=== PATIENT | female | born 1935 | race African-American/Black ===

== ENCOUNTER 2019-04-02 05:29 | Emergency (ER) | payer OTHER | END 2019-04-02 06:51 | disposition home or self-care (01) | LOC: JER 05:29 ==

== ENCOUNTER 2019-10-31 18:51 | Inpatient (IN) | payer OTHER ==
[2019-10-31] MEDS ORDERED: methylPREDNISolone NA SUCC 125 MG/2 ML VIAL IVPB ONE (19:39)
[2019-10-31] MEDS ORDERED: methylPREDNISolone NA SUCC 125 MG/2 ML VIAL ONE (19:45)
--- NOTE | 2019-10-31 19:47 | PDOC ---
History of Present Illness - General Chief Complaint: Edema Stated Complaint: ALLERGIC REACTION Time Seen by Provider: 10/31/19 19:36 - History of Present Illness Initial Comments: The pt is an 84F w/ a history of HTN who presents for evaluation of 1 day of upper lip swelling and hoarse voice. The pt reports noticing it this morning. Denies trouble breathing, trouble swallowing, tongue swelling, throat tingling. She denies any new foods/exposures. She reports taking lisinpril for 15 yrs. Denies fevers/chills, chest pain, abdominal pain, N/V/C/D, dysuria, hematuria 10/31/19 19:47 Past History - Past Medical History Allergies/Adverse Reactions: Allergies Allergy/AdvReac Type Severity Reaction Status Date / Time No Known Allergies Allergy Verified 10/16/13 19:22 Home Medications: Ambulatory Orders Carvedilol [Coreg] 6.25 mg PO DAILY 04/02/19 Lisinopril [Prinivil] 10 mg PO DAILY 04/02/19 Nifedipine [Adalat cc] 60 mg PO DAILY 04/02/19 COPD: No HTN: Yes - Surgical History Appendectomy: Yes - Immunization History Td Vaccination: Yes TDAP Vaccination: Yes Immunization Up to Date: Yes - Psycho Social/Smoking Cessation Hx Smoking History: Never smoked Have you smoked in the past 12 months: No Hx Alcohol Use: No Drug/Substance Use Hx: No Review of Systems - Review of Systems Able to Perform ROS?: Yes Comments:: GENERAL/CONSTITUTIONAL: No fever or chills. No weakness HEAD, EYES, EARS, NOSE AND THROAT: No change in vision. No change in hearing. + Hoarse voice CARDIOVASCULAR: No chest pain or shortness of breath RESPIRATORY: Denies cough, hemoptysis GASTROINTESTINAL: No nausea, vomiting, diarrhea or constipation GENITOURINARY: No dysuria, frequency, or change in urination MUSCULOSKELETAL: No joint or muscle swelling or pain. No neck or back pain SKIN: No rash NEUROLOGIC: No headache, vertigo, loss of consciousness, or change in strength/ sensation ENDOCRINE: No increased thirst. No abnormal weight change HEMATOLOGIC/LYMPHATIC: No anemia, easy bleeding, or history of blood clots ALLERGIC/IMMUNOLOGIC: Upper lip swelling 10/31/19 20:56 Is the patient limited Occitan proficient: No *Physical Exam - Vital Signs Last Vital Signs Temp Pulse Resp BP Pulse Ox 97.6 F 64 16 234/77 H 100 10/31/19 19:23 10/31/19 19:23 10/31/19 19:23 10/31/19 19:23 10/31/19 19:23 - Physical Exam GENERAL: Awake, alert, and oriented to person/place/time, in no acute distress HEAD: No signs of trauma, normocephalic, atraumatic EYES: PERRLA, EOMI, sclera anicteric, conjunctiva clear ENT: Hearing grossly normal, nares patent, large tongue but states is baseline, no oropharynx edema, upper lip swelling noted LUNGS: No distress, speaks in full sentences, clear to auscultation bilaterally , no stridor HEART: Regular rate and rhythm, normal S1 and S2, no murmurs appreciated, peripheral pulses normal and equal bilaterally ABDOMEN: Soft, nontender, normoactive bowel sounds. No guarding, no rebound EXTREMITIES: Normal inspection, Normal range of motion, no edema. No clubbing or cyanosis NEUROLOGICAL: Cranial nerves II through XII grossly intact. Normal speech, normal gait, no focal sensorimotor deficits SKIN: Warm, Dry 10/31/19 20:56 ED Treatment Course - LABORATORY CBC & Chemistry Diagram: 10/31/19 19:50 10/31/19 19:50 - RADIOLOGY Radiology Studies Ordered: Category Date Time Status CHEST X-RAY PORTABLE* [RAD] Stat Radiology 10/31/19 19:39 Ordered Medical Decision Making - Medical Decision Making The pt is an 84F w/ a history of HTN who presents for evaluation of 1 day of upper lip swelling and hoarse voice likely 2/2 angioedema ED Course Pt protecting airway Will give Benadryl and Solumedrol Labs sent 10/31/19 21:04 Pt with improvement in voice Lip swelling present No tongue swelling/oropharyngeal swelling HTN noted, pt w/o GREEN, CP, or CRISSY Will give home medications, Nifedipine and Coreg Will recheck BP s/p meds No leukocytosis No anemia Lytes unremarkable Cr 1.4, at baseline LFTs wnl Pt signed out to [facility] Admitting 10/31/19 21:22 Discharge - Discharge Information Problems reviewed: Yes Clinical Impression/Diagnosis: Angioedema Qualifiers: Encounter type: initial encounter Qualified Code(s): T78.3XXA - Angioneurotic edema, initial encounter HTN (hypertension) Qualifiers: Hypertension type: unspecified Qualified Code(s): I10 - Essential (primary) hypertension Condition: Good - Admission Yes - Follow up/Referral - Patient Discharge Instructions - Post Discharge Activity
--- NOTE | 2019-10-31 19:48 | PDOC ---
Attending Attestation - Resident Resident Name: Vahid Adams - ED Attending Attestation I have performed the following: I have examined & evaluated the patient, The case was reviewed & discussed with the resident, I agree w/resident's findings & plan - HPI HPI: 10/31/19 20:30 see resident hpi - Physicial Exam PE: 10/31/19 20:30 agree with resident exam - Medical Decision Making 10/31/19 20:30 84-year-old female currently on DONTE inhibitor's for hypertension with upper lip swelling and hoarse voice throughout the day Patient improved after IV steroids, on reevaluation lip swelling is subjectively improved per patient, her voice is improved per friend was sitting at the bedside, tongue remains non-swollen and mobile We will admit for observation to medical service/hospitalist
[2019-10-31 20:12] LABS: BASO % 0.6 % (0-2.0); EOS % 7.4 % (0-4.5); HEMATOCRIT 34.9 % (32.4-45.2); HEMOGLOBIN 11.1 GM/dL (10.7-15.3); LYMPH % 20.9 % (8-40); MCH 22.9 pg (25.7-33.7); MCHC 31.7 g/dl (32.0-36.0); MEAN CELL VOLUME 72.4 fl (80-96); MEAN PLT VOLUME 10.1 fl (7.5-11.1); MONO % 9.2 % (3.8-10.2); NEUT % 61.9 % (42.8-82.8); PLATELET COUNT 274 K/MM3 (134-434); RBC 4.82 M/mm3 (3.60-5.2); RDW 15.3 % (11.6-15.6); WHITE BLOOD COUNT 5.7 K/mm3 (4.0-10.0)
[2019-10-31 20:40] LABS: ALBUMIN 3.4 g/dl (3.4-5.0); BILIRUBIN,TOTAL 0.3 mg/dL (0.2-1); CALCIUM 9.5 mg/dL (8.5-10.1); CREATININE 1.4 mg/dL (0.55-1.3); POTASSIUM 3.4 mmol/L (3.5-5.1); TOT PROT 7.5 g/dl (6.4-8.2)
[2019-10-31] MEDS ORDERED: CARVEDILOL 3.125 MG TABLET (FP) PO ONE (21:08)
--- NOTE | 2019-10-31 21:13 | PN ---
Teaching Attending Note Name of Resident: Luis Manuel Mendez ATTENDING PHYSICIAN STATEMENT I saw and evaluated the patient. I reviewed the resident's note and discussed the case with the resident. I agree with the resident's findings and plan as documented. SUBJECTIVE: Patient is an 84 year old woman with a PMH of HTN who presents for evaluation of 1 day of upper lip swelling and hoarse voice. Patient reports noticing it this morning. Denies trouble breathing, trouble swallowing, tongue swelling or throat tingling. She denies any new foods/exposures. She reports taking Lisinpril for 15 years. Denies fevers, chills, chest pain, abdominal pain, nausea, dysuria, hematuria, vomiting, changes in bowel or bladder habits. No recent travels or sick contacts. Denies alcohol, tobacco or illicit drug use. In the ER patient reportedly improved after IV steroids - lip swelling is subjectively improved per patient, her voice is improved per friend was sitting at the bedside and tongue remains non-swollen and mobile. OBJECTIVE: Alert Vital Signs Period Temp Pulse Resp BP Sys/Bashir Pulse Ox Last 24 Hr 97.6 F 64 16 234/77 100 HEENT: No Jaundice, eye redness or discharge, PERRLA, EOMI. Has upper lip swelling; no stridor; No tongue swelling or oropharyngeal edema. Normocephalic, atraumatic. External ears are normal and hearing is grossly intact. No nasal discharge. Neck: Supple, nontender. No palpable adenopathy or thyromegaly. No JVD Chest: Good effort. Clear to auscultation and percussion. Heart: Regular. No S3, rub or murmur Abdomen: Not distended, soft, nontender and no HSM. No rebound or guarding. Normal bowel sounds. Ext: Peripheral pulses intact. No leg edema. Skin: Warm and dry. No petechiae, rash or ecchymosis. Neuro: Alert. Oriented x3. CN 2-12 grossly intact. Sensation grossly intact in all four extremities and DTR are symmetric. Psych: Appropriate mood and affect. Good insight. Current Medications Generic Name Dose Route Start Last Admin Trade Name Freq PRN Reason Stop Dose Admin Nifedipine 90 mg 11/01/19 21:08 Procardia Xl - PO 11/01/19 21:09 ONCE ONE Home Medications Medication Instructions Recorded Carvedilol [Coreg] 6.25 mg PO DAILY 04/02/19 Lisinopril [Prinivil] 10 mg PO DAILY 04/02/19 Nifedipine [Adalat cc] 60 mg PO DAILY 04/02/19 Abnormal Lab Results 10/31/19 10/31/19 19:50 19:50 MCV 72.4 L MCH 22.9 L MCHC 31.7 L Eosinophils % 7.4 H Potassium 3.4 L BUN 22.0 H Creatinine 1.4 H ASSESSMENT AND PLAN: 1. Angioedema - Got Solumedrol and benadryl in the ER. Will continue to treat with benadryl, IV pepcid and FFP while monitoring her closely for respiratory distress or stridor. Counseled to avoid ACEI or ARBs. CXR shows cardiomegaly but no infiltrates. Hypokalemia is unexplained - will check Mg+ level and give IV and PO KCL. Get urinalysis. EKG shows LAE, LAFB, LVH and septal infarct of undetermined age. Initial troponin is negative. Will repeat EKG and troponin. Will continue comprehensive care for all of patients comorbid conditions. 2. CKD - Likely associated with severe hypertension. Will strive for normotension to slow progression of CKD. Will consult nephrology and avoid nephrotoxic agents such as NSAIDS, aminoglycosides, contrast dyes and certain Alternative medicine products. 3. Uncontrolled Hypertension - Record show she had workup for secondary hypertension in 2010. Got Nifedipine XL 90 mg in the ER - if hypertension persists, will give IV hydralazine 5 mg. Restart suitable outpatient antihypertensive drugs when clinically appropriate. 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 Nonpharmacologic measures to control hypertension like weight loss, salt restriction and exercise discussed. Importance of adherence to treatment regimen and attainment of normotension emphasized. 4. DVT prophylaxis - Heparin 5000u sq tid. 5. Advance directives - Full code
[2019-10-31] MEDS ORDERED: CARVEDILOL 3.125 MG TABLET (FP) ONE (21:14)
[2019-10-31] MEDS ORDERED: NIFEdipine E.R. 30 MG TABLET (FP) ONE (21:15)
[2019-10-31] MEDS ORDERED: NIFEdipine E.R. 90 MG TABLET (FP) PO ONE (21:22)
[2019-10-31 21:45] LABS: MAGNESIUM 2.2 mg/dL (1.8-2.4); PHOSPHOROUS 3.6 mg/dL (2.5-4.9)
--- NOTE | 2019-10-31 22:59 | HP ---
CHIEF COMPLAINT: lip swelling PCP: Dr. Mauro HISTORY OF PRESENT ILLNESS: 84 yo F PMH of HTN presents to ED for lip swelling. pt states these symptoms began this morning. she states that she recently changed the brand of her lisinopril on the of the month. she states that she woke up with her lip swollen. she states this has happened once in the past but never like this. she denies eating new foods or travel. she denies allergies. she denies difficulty breathing or swallowing. she states she did not take her BP meds this morning ER course was notable for: (1)solumedrol 125 , benadryl (2)BP 235/77 (3)Coreg 3.125, Nifedipine 90 Recent Travel: denies PAST MEDICAL HISTORY: HTN PAST SURGICAL HISTORY: appendectomy Social History: Smoking:denies Alcohol:denies Drugs: denies Allergies No Known Allergies Allergy (Verified 10/16/13 19:22) HOME MEDICATIONS: Home Medications Medication Instructions Recorded Carvedilol [Coreg] 6.25 mg PO DAILY 04/02/19 Nifedipine [Adalat cc] 60 mg PO DAILY 04/02/19 REVIEW OF SYSTEMS CONSTITUTIONAL: Absent: fever, chills, diaphoresis, generalized weakness, malaise, loss of appetite, weight change HEENT: Present: lip swelling Absent: rhinorrhea, nasal congestion, throat pain, throat swelling, difficulty swallowing, mouth swelling, ear pain, eye pain, visual changes CARDIOVASCULAR: Absent: chest pain, syncope, palpitations, irregular heart rate, lightheadedness , peripheral edema RESPIRATORY: Absent: cough, shortness of breath, dyspnea with exertion, orthopnea, wheezing, stridor, hemoptysis GASTROINTESTINAL: Absent: abdominal pain, abdominal distension, nausea, vomiting, diarrhea, constipation, melena, hematochezia GENITOURINARY: Absent: dysuria, frequency, urgency, hesitancy, hematuria, flank pain, genital pain MUSCULOSKELETAL: Absent: myalgia, arthralgia, joint swelling, back pain, neck pain SKIN: Absent: rash, itching, pallor HEMATOLOGIC/IMMUNOLOGIC: Absent: easy bleeding, easy bruising, lymphadenopathy, frequent infections ENDOCRINE: Absent: unexplained weight gain, unexplained weight loss, heat intolerance, cold intolerance NEUROLOGIC: Absent: headache, focal weakness or paresthesias, dizziness, unsteady gait, seizure, mental status changes, bladder or bowel incontinence PSYCHIATRIC: Absent: anxiety, depression, suicidal or homicidal ideation, hallucinations. PHYSICAL EXAMINATION Vital Signs - 24 hr 10/31/19 10/31/19 19:23 21:32 Temperature 97.6 F Pulse Rate 64 Respiratory 16 Rate Blood Pressure 234/77 H O2 Sat by Pulse 100 100 Oximetry (%) GENERAL: Awake, alert, and fully oriented, in no acute distress. HEAD: Normal with no signs of trauma. EYES: Pupils equal, round and reactive to light, extraocular movements intact EARS, NOSE, THROAT: oropharynx clear without exudates. Moist mucous membranes. swollen upper lip NECK: Normal range of motion, supple without lymphadenopathy, JVD LUNGS: Breath sounds equal, clear to auscultation bilaterally. No wheezes, and no crackles. No accessory muscle use. HEART: Regular rate and rhythm, normal S1 and S2 without murmur, rub or gallop. ABDOMEN: Soft, nontender, not distended, normoactive bowel sounds, no guarding, no rebound, no masses. MUSCULOSKELETAL: Normal range of motion at all joints. No bony deformities or tenderness. No CVA tenderness. UPPER EXTREMITIES: 2+ pulses, warm, well-perfused. No cyanosis. No clubbing. No peripheral edema. LOWER EXTREMITIES: 2+ pulses, warm, well-perfused. No calf tenderness. No peripheral edema. NEUROLOGICAL: Cranial nerves II-XII intact. Normal speech. PSYCHIATRIC: Cooperative. Good eye contact. Appropriate mood and affect. SKIN: Warm, dry, normal turgor, no rashes or lesions noted, normal capillary refill. Laboratory Last Values WBC 5.7 K/mm3 (4.0-10.0) 10/31/19 19:50 RBC 4.82 M/mm3 (3.60-5.2) 10/31/19 19:50 Hgb 11.1 GM/dL (10.7-15.3) 10/31/19 19:50 Hct 34.9 % (32.4-45.2) 10/31/19 19:50 MCV 72.4 fl (80-96) L 10/31/19 19:50 MCH 22.9 pg (25.7-33.7) L 10/31/19 19:50 MCHC 31.7 g/dl (32.0-36.0) L 10/31/19 19:50 RDW 15.3 % (11.6-15.6) 10/31/19 19:50 Plt Count 274 K/MM3 (134-434) 10/31/19 19:50 MPV 10.1 fl (7.5-11.1) 10/31/19 19:50 Absolute Neuts (auto) 3.5 K/mm3 (1.5-8.0) 10/31/19 19:50 Neutrophils % 61.9 % (42.8-82.8) 10/31/19 19:50 Lymphocytes % 20.9 % (8-40) 10/31/19 19:50 Monocytes % 9.2 % (3.8-10.2) 10/31/19 19:50 Eosinophils % 7.4 % (0-4.5) H 10/31/19 19:50 Basophils % 0.6 % (0-2.0) 10/31/19 19:50 Nucleated RBC % 0 % (0-0) 10/31/19 19:50 Sodium 143 mmol/L (136-145) 10/31/19 19:50 Potassium 3.4 mmol/L (3.5-5.1) L 10/31/19 19:50 Chloride 107 mmol/L (98-107) 10/31/19 19:50 Carbon Dioxide 28 mmol/L (21-32) 10/31/19 19:50 Anion Gap 9 MMOL/L (8-16) 10/31/19 19:50 BUN 22.0 mg/dL (7-18) H 10/31/19 19:50 Creatinine 1.4 mg/dL (0.55-1.3) H 10/31/19 19:50 Est GFR (CKD-EPI)AfAm 39.33 10/31/19 19:50 Est GFR (CKD-EPI)NonAf 33.94 10/31/19 19:50 Random Glucose 100 mg/dL (74-106) 10/31/19 19:50 Calcium 9.5 mg/dL (8.5-10.1) 10/31/19 19:50 Phosphorus 3.6 mg/dL (2.5-4.9) 10/31/19 19:50 Magnesium 2.2 mg/dL (1.8-2.4) 10/31/19 19:50 Total Bilirubin 0.3 mg/dL (0.2-1) 10/31/19 19:50 AST 26 U/L (15-37) 10/31/19 19:50 ALT 30 U/L (13-61) 10/31/19 19:50 Alkaline Phosphatase 89 U/L (45-117) 10/31/19 19:50 Total Protein 7.5 g/dl (6.4-8.2) 10/31/19 19:50 Albumin 3.4 g/dl (3.4-5.0) 10/31/19 19:50 Blood Type B POSITIVE 10/31/19 20:00 Antibody Screen Negative 10/31/19 19:50 ASSESSMENT/PLAN: 84 yo F PMH of HTN presents to ED for lip swelling. pt admitted to tele for lip swelling and hypertensive urgency Lip angioedema likely 2/2 DONTE-I - DC lisinopril -s/p solumedrol and benadryl -continue benadryl -add pepcid -will consider FFP -monitor for improvement Hypertensive Urgency -change nifedipine to 60 mg BID, continue coreg -add HCTZ 12.5 in am -Hydralazine IV 5mg prn -continue to monitor -continue cardiac monitoring DVT ppx: Heparin F/E/N -hypokalemia- repleted with KCl -monitor lytes -no standing fluids -low sodium diet Dispo: admit to tele ATTENDING PHYSICIAN STATEMENT I saw and evaluated the patient. I reviewed the resident's note and discussed the case with the resident. I agree with the resident's findings and plan as documented. SUBJECTIVE: OBJECTIVE: ASSESSMENT AND PLAN:
[2019-11-01] MEDS ORDERED: hydrALAZINE HCL 20 MG/ML VIAL IVPUSH ONE (00:12)
[2019-11-01] MEDS ORDERED: ACETAMINOPHEN 325 MG TABLET (FP) PO PRN (00:13)
[2019-11-01] MEDS ORDERED: POTASSIUM CHLORIDE ORAL LIQUID 20 MEQ/15 ML PO ONE (00:16)
[2019-11-01] MEDS ORDERED: HYDROCHLOROTHIAZIDE 12.5 MG CAPSULE (FP) PO ONE ×2 (00:48→22:35)
[2019-11-01 03:28] VITALS: BMI 23.7
[2019-11-01 06:51] LABS: BASO % 0.1 % (0-2.0); HEMATOCRIT 33.6 % (32.4-45.2); HEMOGLOBIN 10.8 GM/dL (10.7-15.3); LYMPH % 9.6 % (8-40); MCHC 32.3 g/dl (32.0-36.0); MEAN PLT VOLUME 9.8 fl (7.5-11.1); MONO % 1.2 % (3.8-10.2); NEUT % 89.1 % (42.8-82.8); PLATELET COUNT 288 K/MM3 (134-434); RBC 4.72 M/mm3 (3.60-5.2); RDW 15.2 % (11.6-15.6); WHITE BLOOD COUNT 6.1 K/mm3 (4.0-10.0)
[2019-11-01 07:27] LABS: ALBUMIN 3.2 g/dl (3.4-5.0); BILIRUBIN,TOTAL 0.2 mg/dL (0.2-1); BLOOD UREA NITROGEN 23.8 mg/dL (7-18); CALCIUM 9.4 mg/dL (8.5-10.1); CREATININE 1.4 mg/dL (0.55-1.3); MAGNESIUM 2.3 mg/dL (1.8-2.4); PHOSPHOROUS 3.3 mg/dL (2.5-4.9); POTASSIUM 3.8 mmol/L (3.5-5.1); TOT PROT 7.1 g/dl (6.4-8.2)
[2019-11-01] MEDS: NIFEdipine E.R 60 MG TABLET (UD) PO SCH ×2 (09:15→21:10)
--- NOTE | 2019-11-01 09:29 | EKG ---
Test Reason : Blood Pressure : / mmHG Vent. Rate : 063 BPM Atrial Rate : 063 BPM P-R Int : 160 ms QRS Dur : 122 ms QT Int : 432 ms P-R-T Axes : 051 -61 034 degrees QTc Int : 442 ms NORMAL SINUS RHYTHM POSSIBLE LEFT ATRIAL ENLARGEMENT LEFT ANTERIOR FASCICULAR BLOCK LEFT VENTRICULAR HYPERTROPHY WITH QRS WIDENING AND REPOLARIZATION ABNORMALITY CANNOT RULE OUT SEPTAL INFARCT (CITED ON OR BEFORE 07-JUN-2011) ABNORMAL ECG Confirmed by Chava Marcelino MD ([id number]) on 11/01/2019 9:29:21 AM Referred By: Confirmed By:Chava Marcelino MD
[2019-11-01] MEDS: diphenhydrAMINE HCL 25 MG CAPSULE (FP) PO SCH ×2 (09:54→21:09)
[2019-11-01] MEDS ORDERED: diphenhydrAMINE HCL 25 MG CAPSULE (FP) PO SCH (10:00)
[2019-11-01] MEDS ORDERED: FAMOTIDINE 20 MG TABLET PO SCH ×2 (10:00)
[2019-11-01] MEDS ORDERED: HYDROCHLOROTHIAZIDE 12.5 MG CAPSULE (FP) PO SCH (10:00)
[2019-11-01] MEDS: predniSONE 20 MG TABLET (UD) PO SCH (10:19)
[2019-11-01] MEDS: CARVEDILOL 6.25 MG TABLET (FP) PO SCH ×2 (10:42→21:11)
--- NOTE | 2019-11-01 17:34 | PN ---
Teaching Attending Note Name of Resident: Jeanine Merino ATTENDING PHYSICIAN STATEMENT I saw and evaluated the patient. I reviewed the resident's note and discussed the case with the resident. I agree with the resident's findings and plan as documented. SUBJECTIVE: seen at 9:30 am . she felt better . she still has upper lip swellign but her tongue is nL size. denied any dysphagia or SOB or wheezing OBJECTIVE: NAD. MMM, upper lip edema . no stridor. nl uvula. nl tongue. CV: RRR,3/6 SM at LUSB . Lungs: CTAB Abd: sfot, NT, ND , NL BS Ext : No edema ASSESSMENT AND PLAN: 84 y/o lady with h/o HTN, CKD, and recent skin Bx who presented with lip swellign and hoarse voice and was found to have angioedema 1- Angioedema 2- HTn urgency 3- Skin Bx with leukocytoclastic vasculitis 4- CKD plan : - start prednisone 40 mg daily . taper over a week - change Benadryl to BID - H2 shaun - no signs of resp compromise - cont nifedipine and coreg - hold HCTZ. if more agents are needed , then will add -Skin Bx from 10/25, showed Leukocytoclastic vasculitis - consult heme and Rheum - ESR. - heparin SQ for DVT px
--- NOTE | 2019-11-01 17:37 | PN ---
Physical Exam: SUBJECTIVE: Patient seen and examined. Feels that her swelling has improved compared to yesterday. Denies any difficulty breathing, SOB, chest pain, tongue swelling or other concerns. OBJECTIVE: Vital Signs Period Temp Pulse Resp BP Sys/Bashir Pulse Ox Last 24 Hr 97.6 F-98.4 F 64-81 11-24 132-234/49-88 99-100 GENERAL: The patient is awake, alert, and fully oriented, in no acute distress. HEAD: Normal with no signs of trauma. EYES: PERRL, EOMI, no scleral icterus ENT: oropharynx clear without exudates, moist mucous membranes. Swelling of upper lip NECK: Trachea midline, full range of motion, supple. No stridor or carotid bruits LUNGS: Breath sounds equal, clear to auscultation bilaterally, no wheezes, no crackles, no accessory muscle use. HEART: Regular rate and rhythm, S1, S2 without murmur, rub or gallop. ABDOMEN: Soft, nontender, nondistended, normoactive bowel sounds, no guarding, no rebound EXTREMITIES: 2+ pulses, warm, well-perfused, no peripheral edema. NEUROLOGICAL: Normal speech, gait not observed. PSYCH: Normal mood, normal affect. SKIN: Warm, dry, normal turgor, no rashes or lesions noted Laboratory Results - last 24 hr 10/31/19 10/31/19 10/31/19 19:50 19:50 19:50 WBC 5.7 RBC 4.82 Hgb 11.1 Hct 34.9 MCV 72.4 L MCH 22.9 L MCHC 31.7 L RDW 15.3 Plt Count 274 MPV 10.1 Absolute Neuts (auto) 3.5 Neutrophils % 61.9 Lymphocytes % 20.9 Monocytes % 9.2 Eosinophils % 7.4 H Basophils % 0.6 Nucleated RBC % 0 Sodium 143 Potassium 3.4 L Chloride 107 Carbon Dioxide 28 Anion Gap 9 BUN 22.0 H Creatinine 1.4 H Est GFR (CKD-EPI)AfAm 39.33 Est GFR (CKD-EPI)NonAf 33.94 Random Glucose 100 Calcium 9.5 Phosphorus 3.6 Magnesium 2.2 Total Bilirubin 0.3 AST 26 ALT 30 Alkaline Phosphatase 89 Creatine Kinase 166 Creatine Kinase Index 1.1 CK-MB (CK-2) 1.9 Total Protein 7.5 Albumin 3.4 Blood Type B POSITIVE Antibody Screen Negative 10/31/19 10/31/19 11/01/19 20:00 20:00 05:50 WBC 6.1 RBC 4.72 Hgb 10.8 Hct 33.6 MCV 71.0 L MCH 23.0 L MCHC 32.3 RDW 15.2 Plt Count 288 MPV 9.8 Absolute Neuts (auto) 5.4 Neutrophils % 89.1 H D Lymphocytes % 9.6 D Monocytes % 1.2 L D Eosinophils % 0.0 D Basophils % 0.1 Nucleated RBC % 0 Sodium Potassium Chloride Carbon Dioxide Anion Gap BUN Creatinine Est GFR (CKD-EPI)AfAm Est GFR (CKD-EPI)NonAf Random Glucose Calcium Phosphorus Magnesium Total Bilirubin AST ALT Alkaline Phosphatase Creatine Kinase Creatine Kinase Index CK-MB (CK-2) Total Protein Albumin Blood Type Cancelled B POSITIVE Antibody Screen Cancelled 11/01/19 05:50 WBC RBC Hgb Hct MCV MCH MCHC RDW Plt Count MPV Absolute Neuts (auto) Neutrophils % Lymphocytes % Monocytes % Eosinophils % Basophils % Nucleated RBC % Sodium 141 Potassium 3.8 Chloride 106 Carbon Dioxide 27 Anion Gap 8 BUN 23.8 H Creatinine 1.4 H Est GFR (CKD-EPI)AfAm 39.33 Est GFR (CKD-EPI)NonAf 33.94 Random Glucose 163 H Calcium 9.4 Phosphorus 3.3 Magnesium 2.3 Total Bilirubin 0.2 AST 22 ALT 28 Alkaline Phosphatase 83 Creatine Kinase Creatine Kinase Index CK-MB (CK-2) Total Protein 7.1 Albumin 3.2 L Blood Type Antibody Screen Active Medications Generic Name Dose Route Start Last Admin Trade Name Freq PRN Reason Stop Dose Admin Acetaminophen 650 mg 11/01/19 00:13 Tylenol - PO Q6H PRN PAIN LEVEL 4 - 6 Carvedilol 6.25 mg 11/01/19 10:30 11/01/19 10:42 Coreg - PO 6.25 mg BID MIRNA Administration Diphenhydramine HCl 50 mg 11/01/19 10:00 11/01/19 09:54 Benadryl - PO Not Given BID MIRNA Famotidine 20 mg 11/02/19 10:00 Pepcid - PO DAILY MIRNA Nifedipine 60 mg 11/01/19 10:00 11/01/19 09:15 Procardia Xl - PO 60 mg BID MIRNA Administration Prednisone 40 mg 11/01/19 10:00 11/01/19 10:19 Deltasone - PO 40 mg DAILY MIRNA Administration ASSESSMENT/PLAN: 84 y/o/f with PMHx of HTN presents to ED for lip swelling. Pt admitted to tele for lip swelling and hypertensive urgency. 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 Shah) - consulted Hematology/Oncology (Dr. Rajan) #Prophylaxis - Heparin #FEN - monitor and replete lytes as needed - no standing fluids - low sodium diet #Disposition - continue to monitor for improvement overnight Visit type - Emergency Visit Emergency Visit: Yes ED Registration Date: 10/31/19 Care time: The patient presented to the Emergency Department on the above date and was hospitalized for further evaluation of their emergent condition. - New Patient This patient is new to me today: Yes Date on this admission: 11/01/19 - Critical Care Critical Care patient: No ATTENDING PHYSICIAN STATEMENT I saw and evaluated the patient. I reviewed the resident's note and discussed the case with the resident. I agree with the resident's findings and plan as documented. SUBJECTIVE: OBJECTIVE: ASSESSMENT AND PLAN:
[2019-11-01] MEDS ORDERED: NIFEdipine E.R. 90 MG TABLET (FP) PO ONE (21:08)
[2019-11-01] MEDS: HEPARIN NA (PORCINE) 5,000 UNITS/ML 1ML VIAL SQ SCH ×2 (21:11→22:45)
[2019-11-02] MEDS: HEPARIN NA (PORCINE) 5,000 UNITS/ML 1ML VIAL SQ SCH ×3 (06:05→21:22)
--- NOTE | 2019-11-02 07:16 | PN ---
Teaching Attending Note Name of Resident: Reymundo Carrera ATTENDING PHYSICIAN STATEMENT Seen and examined; please see resident note for further historical information. I personally verified all vázquez historical information and exam findings. Personally interpreted all imaging and diagnostics and reviewed appropriate consults. I reviewed all labs and vital signs as per resident note and EMR as documented. I agree with the above assessment and plan unless supplemented by myself in the following. Seen and examined. No new complaints. No issues with airway compromise, etc. BMI is recorded as 229, with the patient at 1422 pounds which is likely unaccurate. Hemodynamic stable, will discuss with ICU team. VS, labs, imaging reviewed NAD, AAO, resting comfortably in bed. RRR s1/2 no mgr Normal muscle tone, moves all 5 extremities with normal apparent strength Neck is supple, trachea midline, no chris LN Lungs CTAB with sym expansion NT ND +BS no chris organomegaly CN2-12 wnl; no FND NC AT EOMI PERRLA Normal mood, appropriate behavior, euthymic affect No skin breakdown or rashes noted Diagnostics reviewed; skin bx with leukocytoclastic vasculitis. Pending consults; appreciate expert guidance. ASSESSMENT AND PLAN: Patient presents with angioedema and leukocytoclastic vasculitis, being monitored in the intensive care unit with medicine following. 84 y/o lady with h/o HTN, CKD, and recent skin Bx who presented with lip swellign and hoarse voice and was found to have angioedema 1- Angioedema 2- HTn urgency 3- Skin Bx with leukocytoclastic vasculitis 4- CKD plan : - start prednisone 40 mg daily . taper over a week - change Benadryl to BID - H2 shaun - no signs of resp compromise - cont nifedipine and coreg - hold HCTZ. if more agents are needed , then will add -Skin Bx from 10/25, showed Leukocytoclastic vasculitis - consult heme and Rheum - ESR. - heparin SQ for DVT px
[2019-11-02 07:49] LABS: ALBUMIN 2.9 g/dl (3.4-5.0); BILIRUBIN,TOTAL 0.4 mg/dL (0.2-1); CALCIUM 8.9 mg/dL (8.5-10.1); CREATININE 2.3 mg/dL (0.55-1.3); TOT PROT 6.5 g/dl (6.4-8.2)
[2019-11-02] MEDS: CARVEDILOL 6.25 MG TABLET (FP) PO SCH ×2 (09:13→21:17)
[2019-11-02] MEDS: diphenhydrAMINE HCL 25 MG CAPSULE (FP) PO SCH ×2 (09:13→21:17)
[2019-11-02] MEDS: predniSONE 20 MG TABLET (UD) PO SCH (09:14)
[2019-11-02] MEDS: NIFEdipine E.R 60 MG TABLET (UD) PO SCH ×2 (09:16→21:17)
[2019-11-02] MEDS ORDERED: LACTATED RINGERS SOLUTION 1000 ML INFUS.BAG IV ONE (09:52)
[2019-11-02] MEDS ORDERED: HEPARIN NA (PORCINE) 5,000 UNITS/ML 1ML VIAL SQ SCH (10:00)
[2019-11-02] MEDS ORDERED: FAMOTIDINE 20 MG TABLET PO SCH (10:00)
--- NOTE | 2019-11-02 11:10 | CONSULT ---
Consult Consult Specialty:: Nephrology Reason for Consultation:: CRISSY on CKD - History of Present Illness Chief Complaint: lip swelling History of Present Illness: Pt is an 84 year old female with pmhx of ckd and htn who presents with lip swelling. She was on lisinopril and says that the brand was changed. She denies wheezing or shortness of breath. She woke up with a swollen lip. She denies eating any new foods. She was found to have worsening renal function today. I was called to evaluate her. She was also hypertensive. She was given steroids and benadryl in the ER. - History Source History Provided By: Patient - Past Medical History Cardio/Vascular: Yes: HTN Renal/: Yes: Renal Inusuff ...: No - Alcohol/Substance Use Hx Alcohol Use: No - Smoking History Smoking history: Never smoked Have you smoked in the past 12 months: No Home Medications - Allergies Allergies/Adverse Reactions: Allergies Allergy/AdvReac Type Severity Reaction Status Date / Time lisinopril Allergy Severe Swelling Verified 11/01/19 14:12 - Home Medications Home Medications: Ambulatory Orders Carvedilol [Coreg] 12.5 mg PO BID 04/02/19 Nifedipine [Adalat cc] 60 mg PO BID 04/02/19 Hydrocortisone 2.5% Topical Cr [Anusol-Hc -] 1 applic TP DAILY 11/01/19 Hydroxyzine HCl 10 mg PO DAILY 11/01/19 Lisinopril [Prinivil -] 40 mg PO DAILY 11/01/19 Triamcinolone 0.1% Cream [Aristocort 0.1% Cream -] 1 applic TP DAILY 11/01/19 Family Medical History Family History: Denies Review of Systems - Review of Systems Constitutional: reports: No Symptoms Eyes: reports: No Symptoms HENT: reports: Other (lip swelling) Neck: reports: No Symptoms Cardiovascular: reports: No Symptoms Respiratory: reports: No Symptoms Gastrointestinal: reports: No Symptoms Genitourinary: reports: No Symptoms Musculoskeletal: reports: No Symptoms Integumentary: reports: No Symptoms Neurological: reports: No Symptoms Endocrine: reports: No Symptoms Hematology/Lymphatic: reports: No Symptoms Psychiatric: reports: No Symptoms Physical Exam Vital Signs: Vital Signs Temperature 98.4 F 11/02/19 10:00 Pulse Rate 61 11/02/19 10:00 Respiratory Rate 16 11/02/19 10:00 Blood Pressure 143/62 11/02/19 10:00 O2 Sat by Pulse Oximetry (%) 97 11/01/19 21:00 Constitutional: Yes: Calm Eyes: Yes: Conjunctiva Clear HENT: Yes: Atraumatic Neck: Yes: Supple Cardiovascular: Yes: S1, S2 Respiratory: Yes: CTA Bilaterally Gastrointestinal: Yes: Soft Renal/: Yes: WNL Musculoskeletal: Yes: WNL Edema: No Neurological: Yes: Oriented Psychiatric: Yes: Oriented Labs: CBC, BMP 11/01/19 05:50 11/02/19 05:37 Imaging - Results Chest X-ray: Report Reviewed Problem List - Problems (1) CKD (chronic kidney disease) Code(s): N18.9 - CHRONIC KIDNEY DISEASE, UNSPECIFIED (2) Angioedema Code(s): T78.3XXA - ANGIONEUROTIC EDEMA, INITIAL ENCOUNTER Qualifiers: Encounter type: initial encounter Qualified Code(s): T78.3XXA - Angioneurotic edema, initial encounter (3) HTN (hypertension) Code(s): I10 - ESSENTIAL (PRIMARY) HYPERTENSION Qualifiers: Hypertension type: unspecified Qualified Code(s): I10 - Essential (primary ) hypertension Assessment/Plan Current Medications Generic Name Dose Route Start Last Admin Trade Name Freq PRN Reason Stop Dose Admin Acetaminophen 650 mg 11/01/19 00:13 Tylenol - PO Q6H PRN PAIN LEVEL 4 - 6 Carvedilol 6.25 mg 11/01/19 10:30 11/02/19 09:13 Coreg - PO 6.25 mg BID MIRNA Administration Diphenhydramine HCl 50 mg 11/01/19 10:00 11/02/19 09:13 Benadryl - PO 50 mg BID MIRNA Administration Famotidine 20 mg 11/02/19 10:00 11/02/19 09:26 Pepcid - PO 20 mg DAILY MIRNA Administration Heparin Sodium (Porcine) 5,000 unit 11/02/19 10:00 11/02/19 09:14 Heparin - SQ 5,000 unit BID MIRNA Administration Nifedipine 60 mg 11/01/19 10:00 11/02/19 09:16 Procardia Xl - PO 60 mg BID MIRNA Administration Prednisone 40 mg 11/01/19 10:00 11/02/19 09:14 Deltasone - PO 40 mg DAILY MIRNA Administration Laboratory Tests 07/02/11 07/03/11 07/04/11 07:20 06:00 06:05 Creatinine 1.6 H 1.4 H 1.5 H 10/31/19 11/01/19 11/02/19 19:50 05:50 05:37 Creatinine 1.4 H 1.4 H 2.3 H Impression 1. CKD 2. CRISSY 3. HTN 4. angioedema Plan - repeat labs in am - check ua and urine lytes - check renal ultrasound - monitor bp - stop thiazide - hold trevor for now
[2019-11-02 13:16] LABS: BLOOD UREA NITROGEN 41.8 mg/dL (7-18); CALCIUM 9.3 mg/dL (8.5-10.1); CREATININE 1.9 mg/dL (0.55-1.3); POTASSIUM 3.3 mmol/L (3.5-5.1)
--- NOTE | 2019-11-02 15:02 | PN ---
Physical Exam: SUBJECTIVE: Patient seen and examined. No acute events overnight. Swelling continues to improve. Patient believes the swelling is almost back to her baseline appearance. Denies difficulty breathing, difficulty swallowing, chest pain, SOB, abd pain, fever, chills. OBJECTIVE: Vital Signs Period Temp Pulse Resp BP Sys/Bashir Pulse Ox Last 24 Hr 98.2 F-98.4 F 61-78 14-19 130-163/58-68 97 GENERAL: The patient is awake, alert, and fully oriented, in no acute distress. HEAD: Normal with no signs of trauma. EYES: EOMI, no scleral icterus ENT: oropharynx clear without exudates, moist mucous membranes. Mild swelling of upper lip NECK: Trachea midline, full range of motion, supple. No stridor or carotid bruits LUNGS: Breath sounds equal, clear to auscultation bilaterally, no wheezes, no crackles, no accessory muscle use. HEART: Regular rate and rhythm, S1, S2 without murmur, rub or gallop. ABDOMEN: Soft, nontender, nondistended, normoactive bowel sounds, no guarding, no rebound EXTREMITIES: 2+ pulses, warm, well-perfused, no peripheral edema. NEUROLOGICAL: Normal speech, gait not observed PSYCH: Normal mood, normal affect. SKIN: Warm, dry, normal turgor, no rashes or lesions noted. Darkening of the skin noted around neck, rough skin noted on both forearms. Laboratory Results - last 24 hr 11/02/19 11/02/19 11/02/19 05:37 05:37 12:30 ESR 20 Sodium 139 140 Potassium 4.0 3.3 L Chloride 105 106 Carbon Dioxide 23 26 Anion Gap 11 8 BUN 47.0 H 41.8 H Creatinine 2.3 H 1.9 H Est GFR (CKD-EPI)AfAm 21.58 27.19 Est GFR (CKD-EPI)NonAf 18.62 23.46 Random Glucose 172 H 167 H Calcium 8.9 9.3 Total Bilirubin 0.4 AST 16 ALT 23 Alkaline Phosphatase 76 Total Protein 6.5 Albumin 2.9 L Active Medications Generic Name Dose Route Start Last Admin Trade Name Freq PRN Reason Stop Dose Admin Acetaminophen 650 mg 11/01/19 00:13 Tylenol - PO Q6H PRN PAIN LEVEL 4 - 6 Carvedilol 6.25 mg 11/01/19 10:30 11/02/19 09:13 Coreg - PO 6.25 mg BID MIRNA Administration Diphenhydramine HCl 50 mg 11/01/19 10:00 11/02/19 09:13 Benadryl - PO 50 mg BID MIRNA Administration Famotidine 20 mg 11/02/19 10:00 11/02/19 09:26 Pepcid - PO 20 mg DAILY MIRNA Administration Heparin Sodium (Porcine) 5,000 unit 11/02/19 10:00 11/02/19 09:14 Heparin - SQ 5,000 unit BID MIRNA Administration Nifedipine 60 mg 11/01/19 10:00 11/02/19 09:16 Procardia Xl - PO 60 mg BID MIRNA Administration Prednisone 40 mg 11/01/19 10:00 11/02/19 09:14 Deltasone - PO 40 mg DAILY MIRNA Administration ASSESSMENT/PLAN: 84 y/o/f with PMHx of HTN presents to ED for lip swelling. Pt admitted to tele for lip swelling and hypertensive urgency. #Lip angioedema likely 2/2 DONTE-I - Lisinopril discontinued, documented allergy in patient's chart - solumedrol and benadryl given in ED - benadryl 50mg BID - Pepcid 20mg daily - Prednisone 40mg daily - monitor for improvement #Hypertensive Urgency - Blood pressure now improving - Nifedipine to 60 mg BID, Coreg 6.25mg daily - continue to monitor #CRISSY likely 2/2 to hypertensive urgency - Nephrology consulted - Renal U/S - Small right renal simple cyst. Both kidneys are small without gross renal stones or hydronephrosis bilaterally - F/u UA and urine lytes #Leukocytoclastic Vasculitis - Skin biopsy from 10/25/19 showing leukocytoclastic vasculitis - consulted Rheumatology (Dr. Shah), appreciate recs - consulted Hematology/Oncology (Dr. Rajan), appreciate recs #Prophylaxis - Heparin #FEN - monitor and replete lytes as needed - no standing fluids - low sodium diet #Disposition - Transferred to med surg, f/u rheum and heme/onc recs Visit type - Emergency Visit Emergency Visit: Yes ED Registration Date: 10/31/19 Care time: The patient presented to the Emergency Department on the above date and was hospitalized for further evaluation of their emergent condition. - New Patient This patient is new to me today: No - Critical Care Critical Care patient: No ATTENDING PHYSICIAN STATEMENT I saw and evaluated the patient. I reviewed the resident's note and discussed the case with the resident. I agree with the resident's findings and plan as documented. SUBJECTIVE: OBJECTIVE: ASSESSMENT AND PLAN:
--- NOTE | 2019-11-02 15:18 | CONSULT ---
Consultation: REQUESTING PROVIDER:primary team CONSULT REQUEST: We have been asked to medically evaluate this patient for ( leuckocytosis vasculitis ). HISTORY OF PRESENT ILLNESS: 84 yo F PMH of HTN presents to ED for lip swelling. 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 denies smoking alcohol or drugs reports 10 pound weight loss due to diet during last year reports family history of colon cancer at old age and lung cancer in smoking brother, no history od skin cancer REVIEW OF SYSTEMS: CONSTITUTIONAL: Absent: fever, chills, diaphoresis, generalized weakness, malaise, loss of appetite, weight change lost 10 pound last year due to diet HEENT: Absent: rhinorrhea, nasal congestion, throat pain, throat swelling, difficulty swallowing, mouth swelling, ear pain, eye pain, visual changes CARDIOVASCULAR: Absent: chest pain, syncope, palpitations, irregular heart rate, lightheadedness , peripheral edema RESPIRATORY: Absent: cough, shortness of breath, dyspnea with exertion, orthopnea, wheezing, stridor, hemoptysis GASTROINTESTINAL: Absent: abdominal pain, abdominal distension, nausea, vomiting, diarrhea, constipation, melena, hematochezia GENITOURINARY: Absent: dysuria, frequency, urgency, hesitancy, hematuria, flank pain, genital pain MUSCULOSKELETAL: Absent: myalgia, arthralgia, joint swelling, back pain, neck pain SKIN: Absent: rash, itching, pallor HEMATOLOGIC/IMMUNOLOGIC: Absent: easy bleeding, easy bruising, lymphadenopathy, frequent infections ENDOCRINE: Absent: unexplained weight gain, unexplained weight loss, heat intolerance, cold intolerance NEUROLOGIC: Absent: headache, focal weakness or paresthesias, dizziness, unsteady gait, seizure, mental status changes, bladder or bowel incontinence PSYCHIATRIC: Absent: anxiety, depression, suicidal or homicidal ideation, hallucinations. PHYSICAL EXAMINATION Vital Signs - 24 hr 11/01/19 11/01/19 11/01/19 16:00 18:00 21:00 Temperature 98.2 F Pulse Rate 72 78 Respiratory 15 19 19 Rate Blood Pressure 130/58 L 130/58 L O2 Sat by Pulse 97 Oximetry (%) 11/01/19 11/02/19 11/02/19 22:00 02:00 06:00 Temperature 98.4 F 98.2 F 98.4 F Pulse Rate 71 61 74 Respiratory 15 14 15 Rate Blood Pressure 146/61 163/68 138/59 L O2 Sat by Pulse Oximetry (%) 11/02/19 10:00 Temperature 98.4 F Pulse Rate 61 Respiratory 16 Rate Blood Pressure 143/62 O2 Sat by Pulse Oximetry (%) GENERAL: Awake, alert, and fully oriented, in no acute distress. HEAD: Normal with no signs of trauma. EYES: Pupils equal, round and reactive to light, extraocular movements intact, EARS, NOSE, THROAT: Moist mucous membranes.no oral thrush noted NECK: Normal range of motion,left side nodule noted LUNGS: Breath sounds equal, clear to auscultation bilaterally. No wheezes, and no crackles. No accessory muscle use. HEART: Regular rate and rhythm, normal S1 and S2 without murmur, rub or gallop. ABDOMEN: Soft, nontender, not distended, normoactive bowel sounds, LOWER EXTREMITIES: 2+ pulses, warm, well-perfused. No calf tenderness. No peripheral edema.silver scaling on b/l knees ?? NEUROLOGICAL: no focal deficit . Normal speech. PSYCHIATRIC: Cooperative. SKIN: Warm, dry, exzematous changes around the neck and upper chest no breast mass enlarged multiple hand joint deformities and foot as well swan neck joint , ulnar deviation Laboratory Results - last 24 hr 11/02/19 11/02/19 11/02/19 05:37 05:37 12:30 ESR 20 Sodium 139 140 Potassium 4.0 3.3 L Chloride 105 106 Carbon Dioxide 23 26 Anion Gap 11 8 BUN 47.0 H 41.8 H Creatinine 2.3 H 1.9 H Est GFR (CKD-EPI)AfAm 21.58 27.19 Est GFR (CKD-EPI)NonAf 18.62 23.46 Random Glucose 172 H 167 H Calcium 8.9 9.3 Total Bilirubin 0.4 AST 16 ALT 23 Alkaline Phosphatase 76 Total Protein 6.5 Albumin 2.9 L Active Medications Generic Name Dose Route Start Last Admin Trade Name Freq PRN Reason Stop Dose Admin Acetaminophen 650 mg 11/01/19 00:13 Tylenol - PO Q6H PRN PAIN LEVEL 4 - 6 Carvedilol 6.25 mg 11/01/19 10:30 11/02/19 09:13 Coreg - PO 6.25 mg BID MIRNA Administration Diphenhydramine HCl 50 mg 11/01/19 10:00 11/02/19 09:13 Benadryl - PO 50 mg BID MIRNA Administration Famotidine 20 mg 11/02/19 10:00 11/02/19 09:26 Pepcid - PO 20 mg DAILY MIRNA Administration Heparin Sodium (Porcine) 5,000 unit 11/02/19 10:00 11/02/19 09:14 Heparin - SQ 5,000 unit BID MIRNA Administration Nifedipine 60 mg 11/01/19 10:00 11/02/19 09:16 Procardia Xl - PO 60 mg BID MIRNA Administration Prednisone 40 mg 11/01/19 10:00 11/02/19 09:14 Deltasone - PO 40 mg DAILY MIRNA Administration CBC, BMP 11/01/19 05:50 11/02/19 12:30 ASSESSMENT/PLAN: 84 y/o/f with PMHx of HTN presents to ED for lip swelling. Pt admitted to tele for lip swelling and hypertensive urgency. 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 Thank you for this consultative opportunity. Visit type - Emergency Visit Emergency Visit: Yes ED Registration Date: 10/31/19 Care time: The patient presented to the Emergency Department on the above date and was hospitalized for further evaluation of their emergent condition. - New Patient This patient is new to me today: Yes Date on this admission: 11/02/19 - Critical Care Critical Care patient: No ATTENDING PHYSICIAN STATEMENT I saw and evaluated the patient. I reviewed the resident's note and discussed the case with the resident. I agree with the resident's findings and plan as documented. SUBJECTIVE: OBJECTIVE: ASSESSMENT AND PLAN:
[2019-11-02] MEDS ORDERED: ACETAMINOPHEN 325 MG TABLET (FP) PO PRN (16:09)
--- NOTE | 2019-11-02 16:19 | CONSULT ---
Consult Consult Specialty:: Rheumatology - History of Present Illness History of Present Illness: 84 year old female with a PMH of HTN admitted with a 1 day of upper lip swelling and hoarse voice and pruritic skin rash. The patient reports that 1 year ago she developed a pruritic skin rash in chest and lower limbs that resolved with topical steroids. Two months ago she developed pruritic eczematous erythematous patches in back and arms. She was seen by Dr. Sanchez (dermatology) who prescribed, on 10/25/19, Prednisone 10 mg /d, topical hydrocortisone and triamcinolone. On 10/27/19 she had a skin biopsy reported with leukocytoclastic vasculitis. On admission she was treated with IV steroids and presently she is on Prednisone 40 mg/d. The patient denies joint pain or morning stiffness. Laboratory work-up on admission revealed a creatinine of 1.4 that increased to 1.9. LFT normal. - History Source History Provided By: Patient, Medical Record - Past Medical History Cardio/Vascular: Yes: HTN Renal/: Yes: Renal Inusuff ...: No - Alcohol/Substance Use Hx Alcohol Use: No - Smoking History Smoking history: Never smoked Have you smoked in the past 12 months: No Home Medications - Allergies Allergies/Adverse Reactions: Allergies Allergy/AdvReac Type Severity Reaction Status Date / Time lisinopril Allergy Severe Swelling Verified 11/01/19 14:12 - Home Medications Home Medications: Ambulatory Orders Carvedilol [Coreg] 12.5 mg PO BID 04/02/19 Nifedipine [Adalat cc] 60 mg PO BID 04/02/19 Hydrocortisone 2.5% Topical Cr [Anusol-Hc -] 1 applic TP DAILY 11/01/19 Hydroxyzine HCl 10 mg PO DAILY 11/01/19 Lisinopril [Prinivil -] 40 mg PO DAILY 11/01/19 Triamcinolone 0.1% Cream [Aristocort 0.1% Cream -] 1 applic TP DAILY 11/01/19 Review of Systems - Review of Systems Constitutional: reports: Malaise Eyes: reports: No Symptoms HENT: reports: Other (Lip swelling) Neck: reports: No Symptoms Cardiovascular: reports: No Symptoms Respiratory: reports: No Symptoms Musculoskeletal: reports: No Symptoms Integumentary: reports: Other (See HPI) Physical Exam Vital Signs: Vital Signs Temperature 98 F 11/02/19 16:05 Pulse Rate 68 11/02/19 16:05 Respiratory Rate 18 11/02/19 16:05 Blood Pressure 173/71 H 11/02/19 16:05 O2 Sat by Pulse Oximetry (%) 97 11/01/19 21:00 Constitutional: Yes: No Distress Eyes: Yes: WNL HENT: Yes: Other (Mild swelling of lips) Neck: Yes: WNL Cardiovascular: Yes: WNL Respiratory: Yes: WNL Gastrointestinal: Yes: WNL Musculoskeletal: Yes: Other (Swelling of wrists, MCP's, PIP's and both knees. Subluxation of MCP's) Labs: CBC, BMP 11/01/19 05:50 11/02/19 12:30 Laboratory Tests 11/02/19 11/02/19 11/02/19 05:37 05:37 12:30 ESR 20 Est GFR (CKD-EPI)AfAm 27.19 Total Bilirubin 0.4 AST 16 ALT 23 Alkaline Phosphatase 76 Total Protein 6.5 Albumin 2.9 L Problem List - Problems (1) Rheumatoid arthritis Assessment/Plan: Active arthritis involving hands and knees with significant damage suggestive of long standing rheumatoid arthritis, The patient has proabbly a high threshold for pain and denies joint pain or morning stiffness. Plan: Labs (RF, CCP, immunofixation). X ray hands and knees. I did not prescribe medications at this time. Code(s): M06.9 - RHEUMATOID ARTHRITIS, UNSPECIFIED (2) Leukocytoclastic vasculitis Assessment/Plan: Leukocytoclastic vasculitis possibly related to untreated rheumatoid arthritis. Code(s): M31.0 - HYPERSENSITIVITY ANGIITIS (3) Angioedema Assessment/Plan: Probable angioedema, improving, possibly related to medications for hypertension. It is unlikely to be related to rheumatoid arthritis, Code(s): T78.3XXA - ANGIONEUROTIC EDEMA, INITIAL ENCOUNTER Qualifiers: Encounter type: initial encounter
[2019-11-02] MEDS ORDERED: POTASSIUM CHLORIDE TABS 20 MEQ TABLET.ER (FP) PO ONE (17:31)
[2019-11-02 21:19] LABS: EPI CELLS 9.3 /HPF (0-5/HPF); HYALINE CASTS 5 /lpf (0-8); URINE APPEARANCE CLEAR; URINE BILIRUBIN NEGATIVE (NEGATIVE); URINE COLOR YELLOW; URINE GLUCOSE (UA) TRACE (NEGATIVE); URINE KETONE NEGATIVE (NEGATIVE); URINE LEUK ESTERASE 1+ (NEGATIVE); URINE NITRITE NEGATIVE (NEGATIVE); URINE PROTEIN 1+ (NEGATIVE); URINE RBC 1 /hpf (0-4); URINE UROBILINOGEN 0.2 mg/dL (0.2-1.0); URINE WBC 18 /hpf (0-5)
--- NOTE | 2019-11-03 08:09 | PN ---
Teaching Attending Note Name of Resident: Alphonso Grande ATTENDING PHYSICIAN STATEMENT I saw and evaluated the patient. I reviewed the resident's note and discussed the case with the resident. I agree with the resident's findings and plan as documented. SUBJECTIVE: Patient seen and examined Presented with leukoclastic vasculitis on skin biopsy. Seen by rheumatology - active rheumatoid arthritis - likely etiology. Noted to have hypochromic, microcytic anemia with renal disease Family history - brother - lung ca brother colon ca Last mammography - 6 years earlier Last colonoscopy - about 5 years earlier No family history of anemia or SS disease Last Vital Signs Temp Pulse Resp BP Pulse Ox 98.9 F 72 17 135/67 97 11/03/19 06:04 11/03/19 06:04 11/03/19 06:04 11/03/19 06:04 11/02/19 20:52 HEENT: ERICA, EOM Intact Oropharynx: No thrush, No mucositis Neck: Supple Nodes: Without adenopathy Breasts: Without masses Cor: RSR, No murmurs, No gallops Lungs: Clear to P&A Abd: Soft, Normal bowel sounds, No organomegaly Ext:rheumatoid changes hands Skin: eczematous patches - CBC, BMP 11/01/19 05:50 11/02/19 12:30 Current Medications Generic Name Dose Route Start Last Admin Trade Name Freq PRN Reason Stop Dose Admin Acetaminophen 650 mg 11/02/19 16:09 Tylenol - PO Q6H PRN PAIN LEVEL 4 - 6 Carvedilol 6.25 mg 11/02/19 22:00 11/02/19 21:17 Coreg - PO 6.25 mg BID MIRNA Administration Diphenhydramine HCl 50 mg 11/02/19 22:00 11/02/19 21:17 Benadryl - PO 50 mg BID MIRNA Administration Famotidine 20 mg 11/03/19 10:00 Pepcid - PO DAILY MIRNA Heparin Sodium (Porcine) 5,000 unit 11/02/19 22:00 11/02/19 21:22 Heparin - SQ Not Given BID MIRNA Nifedipine 60 mg 11/02/19 22:00 11/02/19 21:17 Procardia Xl - PO 60 mg BID MIRNA Administration Prednisone 40 mg 11/03/19 10:00 Deltasone - PO DAILY [facility] impression: Leukoclastic vasculitis- likely secondary to R.A. Hypo/micro anemia - --R/O Fe++ deficiency, thalassemia Anemia, renal insufficiency, revere a/g ratio --r/o dysproteinemia Plan :: Fe++ studies, HbE Protein studies F/U colonoscopy - ( family history of colon ca and due -- 5 years) Mammography - out patient . OBJECTIVE: ASSESSMENT AND PLAN:
[2019-11-03] MEDS ORDERED: diphenhydrAMINE HCL 25 MG CAPSULE (FP) PO ONE (10:02)
[2019-11-03 10:39] LABS: ALBUMIN 3.2 g/dl (3.4-5.0); BILIRUBIN,TOTAL 0.4 mg/dL (0.2-1); BLOOD UREA NITROGEN 41.4 mg/dL (7-18); CALCIUM 9.4 mg/dL (8.5-10.1); CREATININE 1.9 mg/dL (0.55-1.3); POTASSIUM 3.9 mmol/L (3.5-5.1); TOT PROT 7.1 g/dl (6.4-8.2)
[2019-11-03] MEDS: HEPARIN NA (PORCINE) 5,000 UNITS/ML 1ML VIAL SQ SCH ×2 (11:23→21:33)
[2019-11-03] MEDS: CARVEDILOL 6.25 MG TABLET (FP) PO SCH ×2 (11:23→21:33)
[2019-11-03] MEDS: predniSONE 20 MG TABLET (UD) PO SCH (11:23)
[2019-11-03] MEDS: NIFEdipine E.R 60 MG TABLET (UD) PO SCH ×2 (11:25→21:33)
[2019-11-03] MEDS: FAMOTIDINE 20 MG TABLET PO SCH (11:25)
[2019-11-03] MEDS: diphenhydrAMINE HCL 25 MG CAPSULE (FP) PO SCH (11:29)
--- NOTE | 2019-11-03 15:40 | PN ---
Progress Note, Physician History of Present Illness: Pt seen and examined at bedside. She is awake and alert. SHe denies lip swelling or difficulty swallowing. - Current Medication List Current Medications: Active Medications Acetaminophen (Tylenol -) 650 mg PO Q6H PRN PRN Reason: PAIN LEVEL 4 - 6 Carvedilol (Coreg -) 6.25 mg PO BID [facility] Last Admin: 11/03/19 11:23 Dose: 6.25 mg Diphenhydramine HCl (Benadryl -) [address] [facility] Famotidine (Pepcid -) 20 mg PO DAILY [facility] Last Admin: 11/03/19 11:25 Dose: 20 mg Heparin Sodium (Porcine) (Heparin -) 5,000 unit SQ BID [facility] Last Admin: 11/03/19 11:23 Dose: 5,000 unit Nifedipine (Procardia Xl -) 60 mg PO BID [facility] Last Admin: 11/03/19 11:25 Dose: 60 mg Prednisone (Deltasone -) 40 mg PO DAILY [facility] Last Admin: 11/03/19 11:23 Dose: 40 mg - Objective Vital Signs: Vital Signs Temperature 97.6 F 11/03/19 14:54 Pulse Rate 66 11/03/19 14:54 Respiratory Rate 18 11/03/19 14:54 Blood Pressure 129/60 11/03/19 14:54 O2 Sat by Pulse Oximetry (%) 97 11/03/19 09:00 Constitutional: Yes: Calm Eyes: Yes: Conjunctiva Clear HENT: Yes: Atraumatic Neck: Yes: Supple Cardiovascular: Yes: S1, S2 Respiratory: Yes: CTA Bilaterally Gastrointestinal: Yes: Soft Genitourinary: Yes: WNL Musculoskeletal: Yes: WNL Edema: No Neurological: Yes: Oriented Psychiatric: Yes: Oriented Labs: CBC, BMP 11/01/19 05:50 11/03/19 09:30 Problem List - Problems (1) CKD (chronic kidney disease) Code(s): N18.9 - CHRONIC KIDNEY DISEASE, UNSPECIFIED (2) Angioedema Code(s): T78.3XXA - ANGIONEUROTIC EDEMA, INITIAL ENCOUNTER Qualifiers: Encounter type: initial encounter Qualified Code(s): T78.3XXA - Angioneurotic edema, initial encounter (3) HTN (hypertension) Code(s): I10 - ESSENTIAL (PRIMARY) HYPERTENSION Qualifiers: Hypertension type: unspecified Qualified Code(s): I10 - Essential (primary ) hypertension Assessment/Plan Current Medications Generic Name Dose Route Start Last Admin Trade Name Freq PRN Reason Stop Dose Admin Acetaminophen 650 mg 11/02/19 16:09 Tylenol - PO Q6H PRN PAIN LEVEL 4 - 6 Carvedilol 6.25 mg 11/02/19 22:00 11/03/19 11:23 Coreg - PO 6.25 mg BID [facility] Administration Diphenhydramine HCl 25 mg 11/03/19 22:00 Benadryl - PO HS [facility] Famotidine 20 mg 11/03/19 10:00 11/03/19 11:25 Pepcid - PO 20 mg DAILY [facility] Administration Heparin Sodium (Porcine) 5,000 unit 11/02/19 22:00 11/03/19 11:23 Heparin - SQ 5,000 unit BID [facility] Administration Nifedipine 60 mg 11/02/19 22:00 11/03/19 11:25 Procardia Xl - PO 60 mg BID [facility] Administration Prednisone 40 mg 11/03/19 10:00 11/03/19 11:23 Deltasone - PO 40 mg DAILY [facility] Administration Impression 1. CKD 2. CRISSY 3. HTN 4. angioedema Plan - cont to monitor delivery consultant - will need outpt follow up - lisinopril stopped, will not restart - hold thiazide - renal ultrasound reviewed
--- NOTE | 2019-11-03 18:47 | DS ---
Physical Exam: SUBJECTIVE: Patient seen and examined OBJECTIVE: Vital Signs Period Temp Pulse Resp BP Sys/Bashir Pulse Ox Last 24 Hr 97.6 F-98.9 F 66-78 17-20 129-162/60-90 97-97 PHYSICAL EXAM GENERAL: The patient is awake, alert, and fully oriented, in no acute distress. HEAD: Normal with no signs of trauma. EYES: EOMI, no scleral icterus ENT: oropharynx clear without exudates, moist mucous membranes. NECK: Trachea midline, full range of motion, supple. No stridor or carotid bruits LUNGS: Breath sounds equal, clear to auscultation bilaterally, no wheezes, no crackles, no accessory muscle use. HEART: Regular rate and rhythm, S1, S2 without murmur, rub or gallop. ABDOMEN: Soft, nontender, nondistended, normoactive bowel sounds, no guarding, no rebound EXTREMITIES: 2+ pulses, warm, well-perfused, no peripheral edema. Rheumatoid changes bilateral hands NEUROLOGICAL: Normal speech, gait not observed PSYCH: Normal mood, normal affect. SKIN: Warm, dry, normal turgor, no rashes or lesions noted LABS Laboratory Results - last 24 hr 11/02/19 11/02/19 11/02/19 20:45 20:45 20:45 Retic Count Sodium Potassium Chloride Carbon Dioxide Anion Gap BUN Creatinine Est GFR (CKD-EPI)AfAm Est GFR (CKD-EPI)NonAf Random Glucose Calcium Iron TIBC Iron Saturation Unsaturated IBC Ferritin Total Bilirubin AST ALT Alkaline Phosphatase Total Protein Albumin Urine Color Yellow Urine Appearance Clear Urine pH 5.0 Ur Specific [place] 1.013 Urine Protein 1+ H Urine Glucose (UA) Trace Urine Ketones Negative Urine Blood Negative Urine Nitrite Negative Urine Bilirubin Negative Urine Urobilinogen 0.2 Ur Leukocyte Esterase 1+ H Urine WBC (Auto) 18 Urine RBC (Auto) 1 Urine Casts (Auto) 5 U Epithel Cells (Auto) 9.3 Urine Bacteria (Auto) 351.0 Ur Random Creatinine 78.0 Ur Random Sodium 28 L 11/03/19 11/03/19 11/03/19 09:30 09:30 09:30 Retic Count 1.35 Sodium 138 Potassium 3.9 Chloride 104 Carbon Dioxide 27 Anion Gap 7 L BUN 41.4 H Creatinine 1.9 H Est GFR (CKD-EPI)AfAm 27.19 Est GFR (CKD-EPI)NonAf 23.46 Random Glucose 163 H Calcium 9.4 Iron 75 TIBC 313 Iron Saturation 23 Unsaturated IBC 238 Ferritin 58.5 Total Bilirubin 0.4 AST 19 ALT 28 Alkaline Phosphatase 79 Total Protein 7.1 Albumin 3.2 L Urine Color Urine Appearance Urine pH Ur Specific [place] Urine Protein Urine Glucose (UA) Urine Ketones Urine Blood Urine Nitrite Urine Bilirubin Urine Urobilinogen Ur Leukocyte Esterase Urine WBC (Auto) Urine RBC (Auto) Urine Casts (Auto) U Epithel Cells (Auto) Urine Bacteria (Auto) Ur Random Creatinine Ur Random Sodium HOSPITAL COURSE: Date of Admission:10/31/19 Date of Discharge: 11/03/19 84 y/o/f with PMHx of HTN presents to ED for lip swelling. Patients states the brand of her lisinopril recently changed. She did not take any medications after her lips started to swell. On admission patient had elevated BP and lip swelling. Lisinopril was discontinued. Patient given prednisone, pepcid, and benadryl while admitted with improvement in lip swelling. No airway compromise on admission or during hospital stay noted. Patient was started on Nifedipine 60mg BID and coreg 6.25mg daily for BP control with success. CRISSY noted during admission, likely 2/2 to hypertensive urgency. Renal U/S showed a small right simple cyst and both kidneys appeared small without gross renal stones or hydronephrosis. Patient was seen by nephrology and recommended to follow up outpatient. Patient had a skin biopsy performed by Dr. 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 Hand and knee xrays showed that patient had multiple arthritic changes. Tests, including Rhematoid factor were ordered for further workup, patient to follow up with Rheumatology outpatient. Patient also seen by heme/onc and will follow up outpatient for results of tests ordered while admitted. Patient discharged with appropriate follow up instructions and prescriptions for new medications. Minutes to complete discharge: 36 Discharge Summary Problems reviewed: Yes Reason For Visit: ANGIOEDEMA,HYPERTENSION Current Active Problems Angioedema (Acute) CKD (chronic kidney disease) (Acute) HTN (hypertension) (Acute) Leukocytoclastic vasculitis (Acute) Rheumatoid arthritis (Acute) Condition: Improved - Instructions Diet, Activity, Other Instructions: You presented to the hospital due to swelling of your lips and high blood pressure. We think this was likely caused by the Lisinopril medication that you were on. We discontinued this medication and your symptoms improved. We started you on the blood pressure medications mentioned below with improvement in your blood pressure. While admitted we received a report from Dr. 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 You were seen by Rheumatology and Hematology/ Oncology during this admission for this reason, please follow up with them after discharge for further workup and management of this finding. Your kidney function was elevated during this admission, you had an ultrasound of your kidneys and bladder completed which did not show any significant issues. Please follow up with Dr. Raza, Nephrology for further management of your kidney function. Medication Changes: 1. START Coreg 6.25mg twice daily for better blood pressure control. 2. START Nifedipine 60mg twice daily for better blood pressure control. 3. Continue taking Prednisone 40mg once daily for 2 more days. 4. Continue taking Benadryl 25mg once daily for 2 more days. 5. Continue taking Pepcid 20mg once daily for 2 more days. 6. STOP taking Lisinopril as this medication likely cause the lip swelling you experienced before you came to the hospital. Do not take any medications that end with -pril or -sartan. Follow up labs and tests: 1. Please have your basic metabolic panel checked in 3 days to monitor your kidney function. 2. You are due for a mammography, please have one completed in the next 1-2 weeks. Follow up with the following physicians: 1. Please follow up with your primary care provider, Dr. Mauro, within 3-5 days of discharge for further management of your medical conditions and to discuss the medications you were started on while in the hospital. 2. Recommended to follow up with Dr. Shah, Rheumatology, within 1 week of discharge for further management of your medical conditions. 3. Recommended to follow up with Dr. Raza, Nephrology, within 1 week of discharge for further management of your medical conditions as your kidney function was elevated during this admission. 4. Recommended to follow up with Dr. Rajan, Hematology/Oncology, within 1 week of discharge for further management of your medical conditions. 5. Recommended to follow up with your maltster for a colonoscopy as your are due for one currently. If you do not have a maltster a referral for one has been included for you. 6. Please follow up with Dr. Sanchez, your vp data, on your next scheduled appointment. Activity and Diet 1. You are being discharged home. Recommend daily exercise to strengthen your muscles. 2. Please monitor your diet as you need to consume a diet Continue all your other medications as prescribed Please return to the ER if you have any signs or symptoms of chest pain, shortness of breath, uncontrollable fever, chills, nausea, vomiting, numbness, tingling, or weakness in any part of your body, changes in vision, or slurred speech. Please return to the ER if symptoms persist, worsen, or new symptoms arise. Referrals: Jo Sanchez MD [Staff Physician] - Yoseph Shah MD [Staff Physician] - Odilon Wright MD [Staff Physician] - Niko Mauro MD [Primary Care Provider] - Jared Rajan MD [Staff Physician] - Sandip Raza MD [Staff Physician] - Disposition: HOME - Home Medications Comprehensive Discharge Medication List: Ambulatory Orders Hydrocortisone 2.5% Topical Cr [Anusol-Hc -] 1 applic TP DAILY 11/01/19 Hydroxyzine HCl 10 mg PO DAILY 11/01/19 Triamcinolone 0.1% Cream [Aristocort 0.1% Cream -] 1 applic TP DAILY 11/01/19 Carvedilol [Coreg -] 6.25 mg PO BID 30 Days #60 tablet 11/03/19 Diphenhydramine HCl [Benadryl Capsule -] 25 mg PO HS 2 Days #2 capsule 11/03/19 Famotidine [Pepcid -] 20 mg PO DAILY 2 Days #2 tablet 11/03/19 Nifedipine ER [Procardia XL -] 60 mg PO BID 30 Days #60 tab.er.24 11/03/19 predniSONE [Deltasone -] 40 mg PO DAILY 2 Days #2 tablet 11/03/19 This patient is new to me today: Yes Date on this admission: 11/03/19 Emergency Visit: No Critical Care patient: No - Discharge Referral Referred to [facility] No ATTENDING PHYSICIAN STATEMENT I saw and evaluated the patient. I reviewed the resident's note and discussed the case with the resident. I agree with the resident's findings and plan as documented. SUBJECTIVE: OBJECTIVE: ASSESSMENT AND PLAN:
--- NOTE | 2019-11-03 19:27 | PN ---
Teaching Attending Note Name of Resident: Reymundo Carrera ATTENDING PHYSICIAN STATEMENT Seen and examined; please see resident note for further historical information. I personally verified all vázquez historical information and exam findings. Personally interpreted all imaging and diagnostics and reviewed appropriate consults. I reviewed all labs and vital signs as per resident note and EMR as documented. I agree with the above assessment and plan unless supplemented by myself in the following. 10 item review of systems completed and is negative aside from as discussed in the subjective data in my own/the resident documentation. Her presenting symptomatology is completely resolved. The patient has no further complaints. Medication if she was completed. Resident's states not contacted regarding the medication issues yesterday post discharge order. Plan is unchanged
[2019-11-03] MEDS ORDERED: diphenhydrAMINE HCL 25 MG CAPSULE (FP) PO SCH (22:00)
[2019-11-04] MEDS ORDERED: hydrALAZINE HCL 10 MG TABLET PO ONE (03:06)
[2019-11-04] MEDS: CARVEDILOL 6.25 MG TABLET (FP) PO SCH (09:21)
[2019-11-04] MEDS: predniSONE 20 MG TABLET (UD) PO SCH (09:21)
[2019-11-04] MEDS: HEPARIN NA (PORCINE) 5,000 UNITS/ML 1ML VIAL SQ SCH (09:21)
[2019-11-04] MEDS: FAMOTIDINE 20 MG TABLET PO SCH (09:22)
[2019-11-04] MEDS: NIFEdipine E.R 60 MG TABLET (UD) PO SCH (09:22)
[2019-11-04 10:42] VITALS: BP 149/67; PULSE 66; TEMP 98.2
[2019-11-04 18:07] LABS: FREE KAPPA,SERUM 37.4 mg/L (3.3-19.4)
[2019-11-07 10:06] LABS: HGB SOLUBILITY Negative (Negative); Hgb C 0 % (0.0); Hgb F 0 % (0.0-2.0); Hgb S 0 % (0.0)
== END 2019-11-04 12:11 | disposition home or self-care (01) | DRG 305 ==
LOC: JER 18:51 → SUPCPDRO 18:51 → JERBED 21:15 → J2W 11-01 03:14 → J6S 11-02 15:31
PROVIDERS: ADMIT Internal Medicine; ATTEND Internal Medicine
DX: I16.0 Hypertensive urgency (principal); N17.9 Acute kidney failure, unspecified; M31.0 Hypersensitivity angiitis; T78.3XXA Angioneurotic edema, initial encounter; T46.4X5A Adverse effect of angiotensin-converting-enzyme inhibitors, initial encounter; M05.20 Rheumatoid vasculitis with rheumatoid arthritis of unspecified site; I12.9 Hypertensive chronic kidney disease with stage 1 through stage 4 chronic kidney disease, or unspecified chronic kidney disease; N18.9 Chronic kidney disease, unspecified; E87.6 Hypokalemia; N28.1 Cyst of kidney, acquired; D63.8 Anemia in other chronic diseases classified elsewhere; D50.0 Iron deficiency anemia secondary to blood loss (chronic)
CPT/HCPCS: 36415; 71045-TC-FY; 73130-TC-LT-FY; 73130-TC-RT-FY; 73562-TC-LT-FY; 73562-TC-RT-FY; 76775-TC; 76856-TC; 80048; 80053; 81003; 82550; 82553; 82565; 82728; 82784; 83021; 83540; 83550; 83735; 83883; 84100; 84155; 84165; 84300; 85025; 85044; 85651; 85660; 86200; 86431; 86850; 86900; 86901; 93005; 93010; 97116-GP; 97161-GP; 99285-25; J1644